=== PATIENT | female | born 1995 | race African-American/Black ===

== ENCOUNTER 2017-10-30 23:04 | Emergency (ER) | payer OTHER ==
[~2017-10-30] VITALS: Ht 157.5 cm; Wt 117.9 kg
[~2017-10-30 23:04] MED LIST: CLEOCIN HCL150 MG PO; ERYTHROMYCIN E3.5 G3 OPHTHALMIC; IRON325 PO; PERCOCET 5-3251 EACH PO; TYLENOL325 MG PO; VITAFOL-OB+DHA1 EACH PO
[2017-10-31 01:21] VITALS: BP 123/69
== END 2017-10-31 01:20 | disposition home or self-care (01) ==
LOC: ER 23:04
DX: O26.891 Other specified pregnancy related conditions, first trimester (principal); T18.9XXA Foreign body of alimentary tract, part unspecified, initial encounter; F41.9 Anxiety disorder, unspecified; F32.9 Major depressive disorder, single episode, unspecified; Z90.49 Acquired absence of other specified parts of digestive tract; Z88.2 Allergy status to sulfonamides; Z3A.01 Less than 8 weeks gestation of pregnancy